=== PATIENT | female | born 1985 | race African-American/Black ===

== ENCOUNTER 2018-03-22 17:03 | Emergency (ER) | payer OTHER ==
[~2018-03-22] VITALS: Ht 162.6 cm; Wt 53.5 kg
[~2018-03-22 17:03] MED LIST: AMOXICILLIN500 M1 PO; AUGMENTIN 875875 MG PO; BACTRIM DS TAB1 EACH PO; CLEOCIN HCL150 MG PO; IBUPROFEN 800800 MG PO; NAPROSYN500 MG PO; NORCO 5-325 TA1 EACH PO; PENICILLIN V P500 MG PO; PENICILLIN VK250 MG PO; PERCOCET 5-3251 EACH PO; TORADOL 10 MG T10 MG PO; TRAMADOL 50 MG50 MG PO; ZOFRAN ODT4 MG PO
[2018-03-22 17:15] LABS: URINE BILIRUBIN NEGATIVE (Negative); URINE BLOOD NEGATIVE (Negative); URINE CLARITY CLEAR; URINE COLOR YELLOW; URINE GLUCOSE-RANDOM* NEGATIVE (Negative); URINE KETONES NEGATIVE (Negative); URINE LEUKOCYTES-REFLEX NEGATIVE (Negative); URINE NITRITE-REFLEX NEGATIVE (Negative); URINE PROTEIN (DIPSTICK) NEGATIVE (Negative); URINE UROBILINOGEN 0.2 E.U./dl (0.2-1.0)
[2018-03-22 17:16] VITALS: BP 121/76
== END 2018-03-22 19:00 | disposition home or self-care (01) ==
LOC: ER 17:03
PROVIDERS: Physician Assistant
DX: Z20.2 Contact with and (suspected) exposure to infections with a predominantly sexual mode of transmission (principal); F17.210 Nicotine dependence, cigarettes, uncomplicated; Z98.890 Other specified postprocedural states

== ENCOUNTER 2020-06-20 20:01 | Emergency (ER) | payer BC ==
[~2020-06-20] VITALS: Ht 160 cm; Wt 60.3 kg
[2020-06-20 21:02] LABS: URINE BILIRUBIN NEGATIVE (Negative); URINE BLOOD NEGATIVE (Negative); URINE CLARITY CLEAR; URINE COLOR YELLOW; URINE GLUCOSE-RANDOM* NEGATIVE (Negative); URINE KETONES NEGATIVE (Negative); URINE LEUKOCYTES-REFLEX TRACE (Negative); URINE NITRITE-REFLEX NEGATIVE (Negative); URINE PROTEIN (DIPSTICK) NEGATIVE (Negative); URINE SPECIFIC GRAVITY 1.025 (1.005-1.035)
[2020-06-20] MEDS ORDERED: NORCO 5-325 TA1 EAC2 PO (21:26)
[2020-06-20] MEDS ORDERED: BACTRIM DS TAB1 EACH PO (21:26)
== END 2020-06-20 21:30 | disposition home or self-care (01) ==
LOC: ER 20:01
PROVIDERS: Physician Assistant
DX: N76.4 Abscess of vulva (principal); N75.1 Abscess of Bartholin's gland; F17.210 Nicotine dependence, cigarettes, uncomplicated; Z98.890 Other specified postprocedural states

== ENCOUNTER 2020-10-21 13:59 | Emergency (ER) | payer BC ==
[~2020-10-21] VITALS: Ht 160 cm; Wt 62.6 kg
[~2020-10-21 13:59] MED LIST changes: +NORCO 5-325 TA1 EAC2 PO
[2020-10-21] MEDS ORDERED: DOXYCYCLINE 10100 MG PO (16:03)
[2020-10-21] MEDS ORDERED: IBUPROFEN 800800 MG PO (16:03)
[2020-10-21 16:35] VITALS: BP 115/62
== END 2020-10-21 16:36 | disposition home or self-care (01) ==
LOC: ER 13:59
DX: N75.0 Cyst of Bartholin's gland (principal); F17.210 Nicotine dependence, cigarettes, uncomplicated; Z98.890 Other specified postprocedural states; Z79.2 Long term (current) use of antibiotics